=== PATIENT | female | born 1955 | race Caucasian/White ===

== ENCOUNTER → 2024-06-11 | Outpatient (CLI) | payer MEDICARE, SELFPAY ==
--- NOTE | 2024-06-11 15:26 | CT_ITS ---
EXAM: CT ORBITS WITH INTRAVENOUS CONTRAST CLINICAL INDICATION: PROPTOSIS/DIPLOPIA/ORBITAL APEX/UNSPECIFIED EXOPHTHALMOS TECHNIQUE: Helically acquired images were obtained of the orbits. Multiplanar reformations were reviewed. Study was performed with intravenous contrast. This CT exam was performed using one or more of the following dose reduction techniques: automated exposure control, adjustment of the mA and/or kV according to patient size, and/or use of iterative reconstruction technique. CONTRAST: IV 75mL Isovue-370 COMPARISON: No relevant prior studies available. FINDINGS: ORBITS: 5 mm of right-sided proptosis noted in comparison to the appearance of the left globe. No evidence of retro-orbital mass. There is enlargement of the right superior ophthalmic vein etiology of which is not apparent on this exam. No enlargement of the extraocular muscles. No structural changes of the globes. Optic nerves appear grossly normal. SINUSES: Unremarkable as visualized. No acute sinusitis. BONES/JOINTS: No suspicious lytic or blastic abnormality. SOFT TISSUES: Normal. No focal subcutaneous swelling. No discrete fluid collections. CT/Orb Sella Post Fossa Ear W/CON IMPRESSION: 1. Right-sided proptosis associated with dilated right superior ophthalmic vein etiology of which is uncertain. 2. Follow-up recommended to exclude carotid cavernous fistula. Electronically Signed: Ba Calderón MD at 16:45 EST ,
--- NOTE | 2024-06-11 15:26 | CT_ITS ---
EXAM: CT HEAD WITHOUT AND WITH INTRAVENOUS CONTRAST CLINICAL INDICATION: PROPTOSIS/DIPLOPIA/ORBITAL APEX/UNSPECIFIED EXOPHTHALMOS TECHNIQUE: Multiple axial images were obtained of the head without and with intravenous contrast. This CT exam was performed using one or more of the following dose reduction techniques: automated exposure control, adjustment of the mA and/or kV according to patient size, and/or use of iterative reconstruction technique. CONTRAST: IV 75mL Isovue-370 COMPARISON: No relevant prior studies available. FINDINGS: BRAIN AND EXTRA-AXIAL SPACES: Normal. No intra- or extra-axial hemorrhage. No evidence of acute infarct. No intracranial mass or mass effect. There is preservation of the maher/white matter interface. Posterior fossa structures are unremarkable. Ventricles are appropriate for age. No hydrocephalus. Basal cisterns are patent. No abnormal contrast enhancement. BONES/JOINTS: Normal calvarium. SINUSES: No acute sinusitis. MASTOID AIR CELLS: Normal. Clear. ORBITS: Right-sided proptosis noted. No evidence of intraorbital mass. Normal-appearing left orbit. CT/Brain/Head W/WO Contrast IMPRESSION: Right-sided proptosis noted. No evidence of intraorbital mass. Electronically Signed: Ba Calderón MD at 16:27 EST ,
[2024-06-11 15:51] LABS: CREATININE FINGERSTICK 1.4 mg/dL (0.55-1.02)
== END | disposition home or self-care (01) ==
LOC: CT 15:21
PROVIDERS: PCP Family Medicine; Referring Provider Ophthalmology; Visit Provider Ophthalmology
DX: H05.20 Unspecified exophthalmos (principal); H53.2 Diplopia; I67.6 Nonpyogenic thrombosis of intracranial venous system
CPT/HCPCS: 70470; 70481; Q9967

== ENCOUNTER → 2024-06-19 | Outpatient (CLI) | payer MEDICARE, SELFPAY ==
--- NOTE | 2024-06-19 13:00 | CT_ITS ---
STUDY: CTA OF THE BRAIN REASON FOR EXAM: Female, 69 years old. PROPTOSIS RADIATION DOSAGE (If Supplied By Facility): CTDIvol = ( 24.20 ) mGy, DLP = ( 1138.55 ) mGycm TECHNIQUE: CT angiography was performed with a multi-detector CT scanner. Data acquisition was obtained from the skull base through the vertex following intravenous administration of IV 75mL Isovue-370. MIP images were reconstructed from the axial data set. Post-processing of the angiographic images was performed, with multiplanar reformation and 3D reconstruction. Individualized dose optimization techniques were used for this CT. COMPARISON: Comparison is made with prior CT scan and dated June 11, 2024. FINDINGS: Normal bilateral petrous carotid arteries. Normal right cavernous carotid artery with a normal supraclinoid bifurcation. Normal left cavernous carotid artery with a normal supraclinoid bifurcation. Normal right A1 segments of the anterior cerebral artery. Normal left A1 segments of the anterior cerebral artery. Normal intact anterior communicating artery (ACOM). Normal bilateral A2 segments of the anterior cerebral arteries. Normal right M1 and M2 segments of the middle cerebral arteries, with a normal M1 bifurcation. Normal left M1 and M2 segments of the middle cerebral arteries, with a normal M1 bifurcation. Normal right posterior communicating artery (PCOM). Normal left posterior communicating artery (PCOM). Normal bilateral vertebral arteries. Normal basilar artery with a normal basilar bifurcation. The visualized bilateral superior cerebellar (SCA) arteries are normal. Normal bilateral P1, P2 and visualized P3 segments of the posterior cerebral arteries. There is no demonstrated aneurysm of the [place]. Right proptosis. This is unchanged. CT/CTA Head W/WO Contrast IMPRESSION: Right proptosis. Electronically Signed: Hal Luciano MD at 13:27 EST ,
== END | disposition home or self-care (01) ==
LOC: CT 12:52
PROVIDERS: PCP Family Medicine; Referring Provider Ophthalmology; Visit Provider Ophthalmology
DX: H05.20 Unspecified exophthalmos (principal)
CPT/HCPCS: 70496; Q9967